=== PATIENT | male | born 1960 | race Caucasian/White ===

== ENCOUNTER 2019-05-14 15:44 | Emergency (ER) | payer OTHER ==
[~2019-05-14] VITALS: Ht 177.8 cm; Wt 100.0 kg
[2019-05-14 16:11] VITALS: BP 109/64
== END 2019-05-14 16:14 ==
LOC: ER 15:44
DX: Z04.1 Encounter for examination and observation following transport accident (principal); V89.2XXA Person injured in unspecified motor-vehicle accident, traffic, initial encounter; Y93.89 Activity, other specified; Y92.89 Other specified places as the place of occurrence of the external cause; Y99.8 Other external cause status
CPT/HCPCS: 99283

== ENCOUNTER 2019-08-30 11:21 | Day surgery (SDC) | payer MEDICAID ==
[2019-08-30] VITALS (16 sets, daily range): BP systolic 121–210; BP diastolic 75–112
[~2019-08-30] VITALS: Ht 177.8 cm; Wt 99.8 kg
[~2019-08-30 11:21] MED LIST: ALBU8.5H8 INH; LISI-600 PO; albuterol 2.5 MG/3 ML nebule NEB ONE; cefazolin/dext.iso 2gm/100ml 100 ML IV ONE; famotidine 10mg tablet PO ONE; ringers solution, lacted 1,000 ML IV SCH
[2019-08-30 13:04] LABS: BASOPHILS # (AUTO) 0.1 X10'3 (0-0.2); BASOPHILS % (AUTO) 1.3 % (0-1); EOSINOPHILS # (AUTO) 0.1 X10'3 (0-0.9); EOSINOPHILS % (AUTO) 1.3 % (0-6); LYMPHOCYTES # (AUTO) 1.9 X10'3 (1.1-4.8); LYMPHOCYTES % (AUTO) 28.5 % (21-51); MEAN CORPUSCULAR HEMOGLOBIN 30.6 PG (27.0-31.0); MEAN CORPUSCULAR HGB CONC 34.2 g/dL (33.0-36.5); MEAN CORPUSCULAR VOLUME 89.5 FL (78-98); MEAN PLATELET VOLUME 7.2 FL (7.4-10.4); MONOCYTES # (AUTO) 0.8 X10'3 (0-0.9); NEUTROPHILS # (AUTO) 3.8 X10'3 (1.8-7.7); NEUTROPHILS % (AUTO) 56.9 % (42-75); PRE OP HEMATOCRIT 42.8 % (42.0-52.0); PRE OP HEMOGLOBIN 14.7 g/dL (14.0-17.9); PRE OP PLATELET COUNT 357 X10'3 (140-440); RED BLOOD COUNT 4.79 X10'6 (4.70-6.10); RED CELL DISTRIBUTION WIDTH 13.9 % (11.5-14.5)
[2019-08-30 13:10] LABS: ALBUMIN 3.4 G/DL (3.4-5.0); ALKALINE PHOSPHATASE 60 IU/L (46-116); BLOOD UREA NITROGEN 14 MG/DL (7-18); BUN/CREATININE RATIO 14.4 (5.4-32.0); CALCIUM 8.8 MG/DL (8.5-10.1); CHLORIDE 103 MMOL/L (99-107); CREATININE 0.97 MG/DL (0.60-1.10); PRE OP ALT 29 U/L (30-65); PRE OP ANION GAP 2 (8-16); PRE OP AST 13 U/L (10-37); PRE OP BILIRUB, TOTAL 0.3 MG/DL (0.0-1.0); PRE OP GLUCOSE 101 MG/DL (70-104); PRE OP POTASSIUM 4.5 MMOL/L (3.4-5.1); PRE OP SODIUM 136 MMOL/L (135-145); TOTAL CARBON DIOXIDE 30.9 MMOL/L (24-32); TOTAL PROTEIN 6.9 G/DL (6.4-8.2); eGFR 79 ML/MIN
[2019-08-30] MEDS ORDERED: LIDOcaine 1% 30ml preserv. free vial ONE (15:45)
[2019-08-30] MEDS ORDERED: BUPIVAcaine/PF 2.5 mg/ml (0.25%) 30ml vial ONE (15:46)
[2019-08-30] MEDS ORDERED: sevoflurane 250ml liquid IH ONE (15:49)
[2019-08-30] MEDS ORDERED: fentaNYL/PF 50MCG/1 ML 2ML syringe ONE ×2 (15:56→15:57)
[2019-08-30] MEDS ORDERED: midazolam 2 mg/2 ml injection ONE (15:57)
[2019-08-30] MEDS ORDERED: ringers solution, lacted 1,000 ML IV SCH (16:36)
[2019-08-30] MEDS ORDERED: propofol inj 20 ML IV ONE (16:37)
[2019-08-30] MEDS ORDERED: rocuronium 10mg/ml inj IV ONE (16:38)
[2019-08-30] MEDS ORDERED: ondansetron/PF 4mg/2ml inj IV PRN (16:40)
[2019-08-30] MEDS ORDERED: morphine 4 MG/ML inj SYRINge IV PRN ×2 (16:40)
[2019-08-30] MEDS ORDERED: meperidine/PF 25mg/ml syringe IV PRN ×2 (16:40)
[2019-08-30] MEDS ORDERED: proCHLORperazine 10 MG/2 ml inj IV PRN (16:40)
[2019-08-30] MEDS ORDERED: BUPIVACAINE liposomal/PF 13.3 MG/ML vial IM ONE ×2 (17:03→17:09)
[2019-08-30] MEDS ORDERED: BUPIVAcaine/PF 2.5mg/ml (0.25%) 10ml vial ONE (17:03)
[2019-08-30] MEDS ORDERED: glycopyrrolate 0.2mg/ml inj ONE (17:19)
[2019-08-30] MEDS ORDERED: neostigmine methylsulfate 1 MG/ML 10ml vial ONE (17:19)
[2019-08-30] MEDS ORDERED: oxyCODONE/APAP 10/325mg tablet PO ONE (17:30)
--- NOTE | 2019-08-30 17:33 | NUR ---
Received from OR via , accompanied by Anesthesiologist DR. CADET and report given by Anesthesiolgist. PATIENT ARRIVED VIA GURNEY. BP ELEVATED CHARTED, DR. CADET MADE AWARE. ABD LAP SITES CDI. PIV TO YASIR PRATHER, LR INFUSING ORDERED. WILL CONTINUE TO MONITOR
[2019-08-30] MEDS: meperidine/PF 25mg/ml syringe IV PRN ×3 (17:40→18:37)
[2019-08-30] MEDS ORDERED: hydrALAZINE 20mg/ml inj. IV ONE (17:45)
--- NOTE | 2019-08-30 20:43 | NUR ---
PATIENT UNABLE TO VOID, BLADDER SCANNED 168. DR. MCDUFFIE MADE AWARE WILL STRAIGHT CATH ORDERED
--- NOTE | 2019-08-30 20:50 | NUR ---
STRAIGHT CATH ORDERED 200 CC YELLOW DRAINAGE RETURNED, PATIENT TOLERATED WELL
--- NOTE | 2019-08-30 21:03 | NUR ---
I HAVE REVIEWED D/C INSTRUCTIONS WITH PATIENT AND FAMILY AND THEY HAVE VERBALIZED UNDERSTANDING. PATIENT D/C HOME WITH ALL BELONGINGS AND FAMILY GAVE TRANSPORT HOME.
== END 2019-08-30 21:05 | disposition home or self-care (01) ==
LOC: PAS 11:21
PROVIDERS: ATTEND Surgery
DX: K43.0 Incisional hernia with obstruction, without gangrene (principal); E66.9 Obesity, unspecified; J45.909 Unspecified asthma, uncomplicated; I10 Essential (primary) hypertension; F17.210 Nicotine dependence, cigarettes, uncomplicated; Z68.31 Body mass index [BMI] 31.0-31.9, adult; Z79.899 Other long term (current) drug therapy; Z98.890 Other specified postprocedural states
CPT/HCPCS: 36415; 49655; 64488; 80053; 82948; 85025; 93005; C1781; C9290; J0360; J2001; J2175; J2250; J2405; J2704; J2710; J3010; J3490; S2900; A4215; A4618; J7120

== ENCOUNTER 2021-04-25 06:59 | Day surgery (SDC) | payer MEDICAID ==
[2021-04-18 11:46] LABS: BASOPHILS # (AUTO) 0.1 X10'3 (0-0.2); EOSINOPHILS # (AUTO) 0.1 X10'3 (0-0.9); EOSINOPHILS % (AUTO) 0.9 % (0-6); LYMPHOCYTES # (AUTO) 1.7 X10'3 (1.1-4.8); LYMPHOCYTES % (AUTO) 23.6 % (21-51); MEAN CORPUSCULAR HEMOGLOBIN 31.6 PG (27.0-31.0); MEAN CORPUSCULAR HGB CONC 34.3 g/dL (33.0-36.5); MEAN CORPUSCULAR VOLUME 92.3 FL (78-98); MEAN PLATELET VOLUME 7.6 FL (7.4-10.4); MONOCYTES % (AUTO) 13.9 % (2-12); NEUTROPHILS # (AUTO) 4.4 X10'3 (1.8-7.7); NEUTROPHILS % (AUTO) 60.6 % (42-75); PRE OP HEMATOCRIT 45.7 % (42.0-52.0); PRE OP HEMOGLOBIN 15.7 g/dL (14.0-17.9); PRE OP PLATELET COUNT 378 X10'3 (140-440); RED BLOOD COUNT 4.95 X10'6 (4.70-6.10); RED CELL DISTRIBUTION WIDTH 13.8 % (11.5-14.5)
[2021-04-18 12:00] LABS: ALBUMIN 3.8 G/DL (3.4-5.0); ALKALINE PHOSPHATASE 71 IU/L (46-116); BLOOD UREA NITROGEN 10 MG/DL (7-18); BUN/CREATININE RATIO 9.5 (5.4-32.0); CALCIUM 8.6 MG/DL (8.5-10.1); CHLORIDE 100 MMOL/L (99-107); CREATININE 1.05 MG/DL (0.60-1.10); PRE OP ALT 29 U/L (30-65); PRE OP ANION GAP 8 (8-16); PRE OP AST 16 U/L (10-37); PRE OP BILIRUB, TOTAL 0.5 MG/DL (0.0-1.0); PRE OP GLUCOSE 106 MG/DL (70-104); PRE OP POTASSIUM 4.4 MMOL/L (3.4-5.1); PRE OP SODIUM 136 MMOL/L (135-145); TOTAL CARBON DIOXIDE 27.7 MMOL/L (24-32); TOTAL PROTEIN 7.5 G/DL (6.4-8.2); eGFR 72 ML/MIN
[~2021-04-25] VITALS: Ht 177.8 cm; Wt 110.9 kg
[~2021-04-25 06:59] MED LIST changes: +ALBU8.5H17 INH; -ALBU8.5H8 INH; +BECL10.6 INH; +BUPIVAcaine 0.5% inj/PF 30 ML ONE; +LIDOcaine 1% 30ml preserv. free vial ONE; -LISI-600 PO; +LISI20TA28 PO; -albuterol 2.5 MG/3 ML nebule NEB ONE; +albuterol 2.5 MG/3 ML nebule NEB PRN; -cefazolin/dext.iso 2gm/100ml 100 ML IV ONE; +cefazolin/dext.iso 2gm/100ml IV ONE; -famotidine 10mg tablet PO ONE; +famotidine 20mg tablet PO ONE
[2021-04-25 08:00] VITALS: BP 142/84
[2021-04-25] MEDS ORDERED: meperidine/PF 25mg/ml syringe IV PRN ×2 (09:50)
[2021-04-25] MEDS ORDERED: acetaminophen 1,000mg/100ml IV 100 ML IV PRN (09:50)
[2021-04-25] MEDS ORDERED: morphine 2 MG/ML inj. syringe IV PRN (09:50)
[2021-04-25] MEDS ORDERED: fentaNYL /PF 50mcg/ml 5ml ampule ONE (09:50)
[2021-04-25] MEDS ORDERED: midazolam 1 mg/ML 2ml injection ONE (09:50)
[2021-04-25] MEDS ORDERED: ondansetron/PF 4mg/2ml inj IV PRN (09:50)
[2021-04-25] MEDS ORDERED: hydrALAZINE 20mg/ml inj. IV PRN (09:50)
[2021-04-25] MEDS ORDERED: ketorolac trometh. 30mg/ml inj. IV ONE (09:50)
[2021-04-25] MEDS ORDERED: labetalol 20mg/4ml (5mg/ml) syringe IV PRN (09:50)
[2021-04-25] MEDS ORDERED: morphine 4 MG/ML inj SYRINge IV PRN (09:50)
[2021-04-25] MEDS ORDERED: sevoflurane 250ml liquid IH ONE (09:50)
[2021-04-25] MEDS ORDERED: glycopyrrolate 0.2mg/ml inj ONE (09:50)
[2021-04-25] MEDS ORDERED: ringers solution, lacted 1,000 ML IV SCH (09:50)
[2021-04-25] MEDS ORDERED: proCHLORperazine 10 MG/2 ml inj IV PRN (09:50)
[2021-04-25] MEDS ORDERED: LIDOcaine 2% (20mg/ml) 5ml vial ONE (10:06)
[2021-04-25] MEDS ORDERED: ondansetron/PF 4mg/2ml inj ONE (10:06)
[2021-04-25] MEDS ORDERED: rocuronium 10mg/ml inj IV ONE ×2 (10:06→10:26)
[2021-04-25] MEDS ORDERED: propofol inj 20 ML IV ONE ×2 (10:06→11:57)
[2021-04-25] MEDS ORDERED: dexamethasone sod phosphate 4mg/ml inj. ONE (10:07)
[2021-04-25] MEDS ORDERED: BUPIVACAINE liposomal/PF 13.3 MG/ML vial IM ONE (10:07)
[2021-04-25] MEDS ORDERED: BUPIVAcaine/PF 2.5mg/ml (0.25%) 10ml vial ONE (10:07)
[2021-04-25] MEDS ORDERED: neostigmine methylsulfate 1 MG/ML 10ml vial ONE (11:58)
[2021-04-25 12:03] VITALS: BP 211/115
[2021-04-25 12:13] VITALS: BP 199/107
[2021-04-25] MEDS ORDERED: albuterol 2.5 MG/3 ML nebule NEB ONE (12:15)
[2021-04-25] MEDS: meperidine/PF 25mg/ml syringe IV PRN ×2 (12:16→12:32)
[2021-04-25 12:23] VITALS: BP 176/105
[2021-04-25] MEDS ORDERED: oxyCODONE/APAP 5-325mg tablet PO PRN ×2 (12:30)
[2021-04-25 12:33] VITALS: BP 151/110
--- NOTE | 2021-04-25 14:00 | NUR ---
PT UP STANDING SIDE OF BED STATES PAIN IS BETTER. MEETS CRITERIA TO GO HOME. PT WAITING FOR RIDE HOME. Addendum: 04/25/21 at 1429 by Dorothy Castrejon RN Amended: Links added.
== END 2021-04-25 14:03 | disposition home or self-care (01) ==
LOC: PAS 06:59
PROVIDERS: ATTEND Surgery
DX: K43.2 Incisional hernia without obstruction or gangrene (principal); M62.08 Separation of muscle (nontraumatic), other site; I10 Essential (primary) hypertension; J44.9 Chronic obstructive pulmonary disease, unspecified; F17.210 Nicotine dependence, cigarettes, uncomplicated; Z98.890 Other specified postprocedural states; Z79.899 Other long term (current) drug therapy; Z20.822 Contact with and (suspected) exposure to COVID-19
CPT/HCPCS: 36415; 49656; 64488; 80053; 82948; 85025; 93005; 94640; 94760; C1781; C9290; J0360; J1100; J2001; J2175; J2250; J2405; J2704; J2710; J3010; J3490; J7120; S2900; U0003; U0005; Z7506; Z7508; Z7512; A4215; A4618